=== PATIENT | female | born 1970 | race Caucasian/White ===

== ENCOUNTER 2016-09-23 20:09 | Emergency (ER) | payer MEDICAID ==
[~2016-09-23] VITALS: Ht 165.1 cm; Wt 74.0 kg
[~2016-09-23 20:09] MED LIST: NAPR-683; NITR-52
[2016-09-23 20:22] VITALS: Ht 165.1 cm; Wt 74.0 kg
[2016-09-23] MEDS ORDERED: ONDA8TAB14 PO (21:42)
[2016-09-23] MEDS ORDERED: IBUP-1542 PO (21:42)
--- NOTE | 2016-09-23 21:50 | ERA ---
ER Documentation Chief Complaint Date/Time DATE: 09/23/16 TIME: 21:48 Chief Complaint PT with vomiting, diarrhea and fever x 2 days. HPI She is 38-year-old obese female who presents complaining of abdominal pain and fever 2 days. Have a thermometer and does not know where fever was. Patient has taken NyQuil once to relieve the symptoms with minimal relief. 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 Patient has nausea more than abdominal pain. Patient is not tender to palpation. Patient reports vomiting only twice a minimal amount. Patient states that she is able to tolerate both solids and liquids. ROS All systems reviewed and are negative except as per history of present illness. Medications Home Meds Active Scripts Ibuprofen* (Ibuprofen*) 600 Mg Tablet, 600 MG PO Q6H Y for FEVER GREATER THAN 100.6 for 10 Days, TAB Prov:CAPO LEVI PA-C 09/23/16 Ondansetron (Ondansetron Odt) 8 Mg Tab.rapdis, 8 MG PO Q6H Y for NAUSEA AND/OR VOMITING, #10 TAB Prov:CAPO LEVI PA-C 09/23/16 Reported Medications Nitrofurantoin/Nitrofuran Mac (Macrobid 100 Mg Capsule) 100 Mg Capsule 08/09/09 Naproxen* (Naproxen*) 250 Mg Tablet 08/09/09 Allergies Allergies: Coded Allergies: No Known Drug Allergies (Verified Allergy, Mild, 08/09/09) PMhx/Soc History of Surgery: Yes (hysterectomy in 2008) Anesthesia Reaction: No Hx Neurological Disorder: No Hx Respiratory Disorders: No Hx Cardiac Disorders: No Hx Psychiatric Problems: No Hx Miscellaneous Medical Probl: Yes (hypercholesterolemia) Hx Alcohol Use: No Hx Substance Use: No Hx Tobacco Use: No Smoking Status: Never smoker Physical Exam Vitals Vital Signs Date Time Temp Pulse Resp B/P Pulse Ox O2 Delivery O2 Flow Rate FiO2 09/23/16 20:22 102.2 100 18 107/66 98 Physical Exam Const: Obese 38-year-old female Head: Atraumatic Eyes: Normal Conjunctiva ENT: Normal External Ears, Nose and Mouth. Neck: Full range of motion..~ No meningismus. Resp: Clear to auscultation bilaterally Cardio: Regular rate and rhythm, no murmurs Abd: Soft, non tender, non distended. Normal bowel sounds Skin: No petechiae or rashes Back: No midline or flank tenderness Ext: No cyanosis, or edema Neur: Awake and alert Psych: Normal Mood and Affect Procedures/MDM Patient has an unremarkable physical exam. Patient has symptoms of viral gastroenteritis 1-2 days and minimal relief with NyQuil. Will give stronger medications with Zofran and ibuprofen for nausea vomiting and fever and pain respectively. Patient has been advised that if symptoms not get better or if fever persists or return to the emergency department immediately. Departure Diagnosis: Primary Impression: Gastritis Additional Impression: Vomiting Condition: Stable Patient Instructions: Gastritis (Adult) Additional Instructions: Return to clinic if fever cannot be controlled her symptoms worsen. CAPO LEVI PA-C Sep 23, 2016 21:50
== END 2016-09-23 21:52 | disposition home or self-care (01) ==
LOC: FTE 20:09
DX: K29.70 Gastritis, unspecified, without bleeding (principal); R11.10 Vomiting, unspecified
CPT/HCPCS: 99283

== ENCOUNTER 2017-01-13 13:32 | Emergency (ER) | payer MEDICAID ==
[~2017-01-13] VITALS: Ht 157.5 cm; Wt 75.0 kg
[~2017-01-13 13:32] MED LIST changes: +IBUP-1542 PO; +ONDA8TAB14 PO
[2017-01-13 13:38] VITALS: Ht 157.5 cm; Wt 75.0 kg
[2017-01-13] MEDS ORDERED: KETOROLAC 30 MG INJ IM STA (15:05)
[2017-01-13] MEDS ORDERED: HYDROCODONE/APAP (5/325) TAB PO ONE (15:30)
[2017-01-13] MEDS ORDERED: TRAM50TA2 PO (16:10)
[2017-01-13] MEDS ORDERED: CYCL-319 PO (16:10)
--- NOTE | 2017-01-13 16:12 | ERD ---
ER Documentation Chief Complaint Date/Time DATE: 01/13/17 TIME: 16:10 Chief Complaint Pt with R leg pain X 1 month and R foot swelling. no fall or injury HPI This 46-year-old female complains of right-sided leg pain for last month. It starts in her back and radiates sites with iron and she has pain in her right foot as well. She denies any history of trauma or injury. She denies any calf swelling or shortness of breath. She denies any bowel or bladder incontinence, urinary complaints, weakness. She was prescribed indomethacin by her primary doctor without relief. ROS All systems reviewed and are negative except as per history of present illness. Medications Home Meds Active Scripts Cyclobenzaprine Hcl* (Cyclobenzaprine Hcl*) 10 Mg Tablet, 10 MG PO TID, #20 TAB Prov:FLORA MANCUSO MD 01/13/17 Tramadol HCl (Tramadol HCl) 50 Mg Tablet, 50 MG PO Q4 Y for PAIN, #20 TAB Prov:FLORA MANCUSO MD 01/13/17 Ibuprofen* (Ibuprofen*) 600 Mg Tablet, 600 MG PO Q6H Y for FEVER GREATER THAN 100.6 for 10 Days, TAB Prov:CAPO LEVI PA-C 09/23/16 Ondansetron (Ondansetron Odt) 8 Mg Tab.rapdis, 8 MG PO Q6H Y for NAUSEA AND/OR VOMITING, #10 TAB Prov:CAPO LEVI PA-C 09/23/16 Reported Medications Nitrofurantoin/Nitrofuran Mac (Macrobid 100 Mg Capsule) 100 Mg Capsule 08/09/09 Naproxen* (Naproxen*) 250 Mg Tablet 08/09/09 Allergies Allergies: Coded Allergies: No Known Drug Allergies (Verified Allergy, Mild, 08/09/09) PMhx/Soc History of Surgery: Yes (hysterectomy in 2008) Anesthesia Reaction: No Hx Neurological Disorder: No Hx Respiratory Disorders: No Hx Cardiac Disorders: No Hx Psychiatric Problems: No Hx Miscellaneous Medical Probl: Yes (hypercholesterolemia) Hx Alcohol Use: No Hx Substance Use: No Hx Tobacco Use: No Smoking Status: Never smoker Physical Exam Vitals Vital Signs Date Time Temp Pulse Resp B/P Pulse Ox O2 Delivery O2 Flow Rate FiO2 01/13/17 13:38 98.4 74 18 131/73 95 Physical Exam Const: [] Alert, [id number] per Head: Atraumatic Eyes: Normal Conjunctiva ENT: Normal External Ears, Nose and Mouth. Neck: Full range of motion..~ No meningismus. Resp: Clear to auscultation bilaterally Cardio: Regular rate and rhythm, no murmurs Abd: Soft, non tender, non distended. Normal bowel sounds Skin: No petechiae or rashes Back: No midline or flank tenderness. Minimal tenderness right L4-5 area. Ext: No cyanosis, or edema. Mild tenderness in the medial aspect of the right foot without erythema, deformities, effusion. There is no calf swelling or Homans sign. Neur: Awake and alert Psych: Normal Mood and Affect Results 24 hrs Current Medications Medications (Trade) Dose Ordered Sig/Janessa Route PRN Reason Start Time Stop Time Status Last Admin Dose Admin Ketorolac Tromethamine (Toradol) 30 mg ONCE STAT IM 01/13/17 15:05 01/13/17 15:07 DC 01/13/17 15:21 Acetaminophen/ Hydrocodone Bitart ([place] (5/325)) 1 tab ONCE ONCE PO 01/13/17 15:30 01/13/17 15:31 DC 01/13/17 15:22 Procedures/MDM Patient presents with low back pain right eye pain and right foot pain. Signs and symptoms suggest sciatica. No evidence of fracture, dislocation, signs or symptoms do not suggest DVT. Suspicion for additional emergent causes of pain suggest cauda equina syndrome, epidural abscess, are very low and there is no evidence of ischemia or additional emergent causes of presenting complaints. She will treated here with Toradol and [place] and tramadol and Flexeril at home instructions for back exercises. The patient was stable with no new complaints during the ER course. Clinically, there is no current evidence to suggest meningitis, sepsis, acute abdomen, pneumonia, acute coronary syndrome, pulmonary embolism, or any other emergent condition appearing to require further evaluation or hospitalization. The patient should certainly return for any new or worsening symptoms per the aftercare instructions. They should otherwise follow-up with her primary care doctor for reevaluation this week. Departure Diagnosis: Primary Impression: Foot pain, right Additional Impression: Back pain Back pain location: low back pain Chronicity: acute Back pain laterality: right Sciatica presence: with sciatica Condition: Stable Patient Instructions: Back Exercises, Lumbar, Back Pain (Acute Or Chronic), Back Pain W/ Sciatica Additional Instructions: Examines normal hoy. Cheque otro vez con arango doctor primario en el proximo meng or regresa para mas o nueva simptomas. FLORA MANCUSO MD Jan 13, 2017 16:12
--- NOTE | 2017-01-13 16:22 | RADRPT ---
PROCEDURE: XR Right Foot CLINICAL INDICATION: Pain TECHNIQUE: AP, oblique, and lateral radiographs were submitted. COMPARISON: None FINDINGS: Osseous structures: appear well mineralized and intact with no fracture or destructive process iden tified. There is mild calcaneal spurring at the insertion of the Achilles tendon and plantar aponeur osis. Joint spaces: are well maintained, with no significant spurring, erosion or joint effusion evident. Soft tissues: appear unremarkable. IMPRESSION: 1. Mild calcaneal spurring. 2. Otherwise, unremarkable right foot series. Physician Williams Date Time Electronically viewed and signed by Physician Williams on 01/13/2017 16:22 /
--- NOTE | 2017-01-13 16:24 | RADRPT ---
PROCEDURE: XR lumbosacral Spine Series CLINICAL INDICATION: Pain TECHNIQUE: 3 standard radiographs were taken of the lumbosacral spine. COMPARISON: None FINDINGS: Alignment: the osseous elements are well aligned without evidence of subluxation. Disk spaces: the disk spaces are adequately maintained. Osseous structures: appear intact with no fracture or osseous destruction identified. There is anter ior spondylosis within the inferior thoracic spine. There is mild left and right lateral spondylosis off the superior endplate of L4. Joint spaces: the facet joints joints appear unremarkable. The sacroiliac joints appear normal. Soft tissues: A metallic density projects to the right ilium which may be external to the patient. IMPRESSION: 1. Mild anterior spondylosis seen at T10-T11. 2. Minimal lateral spondylosis off the superior endplate of L4. 3. A metallic density projects to the right ilium which is likely external to the patient. Physician Williams Date Time Electronically viewed and signed by Physician Williams on 01/13/2017 16:24 /
== END 2017-01-13 16:24 | disposition home or self-care (01) ==
LOC: FTE 13:32
DX: M79.671 Pain in right foot (principal); M54.41 Lumbago with sciatica, right side
CPT/HCPCS: 72100; 73630; 96372; J1885; Z7502; Z7610